=== PATIENT | male | born 1995 | race African-American/Black ===

== ENCOUNTER → 2019-11-13 16:56 | Outpatient (CLI) | payer BC, SELFPAY ==
--- NOTE | 2019-11-13 17:02 | RAD_ITS ---
STUDY: X-RAY CHEST REASON FOR EXAM: Male, 24 years old. Sob, atypical chest pain yesterday TECHNIQUE: PA and lateral views of the chest. COMPARISON: None. FINDINGS: The lungs are clear and expanded. Scattered calcified granulomas. There is no demonstrated pleural abnormality. Normal size heart. Normal mediastinum and shayy. Normal visualized pulmonary arteries. Normal visualized aortic arch and descending thoracic aorta. Normal visualized thoracic spine. Normal visualized ribs, clavicles, and shoulders. There is no demonstrated abnormality of the visualized soft tissue structures of the upper abdomen. RAD/Chest PA and Lateral IMPRESSION: Normal x-ray examination of the chest. Scattered calcified granulomas. Electronically Signed: Crow Allan, at 8:19 EST , Service support ,
[2019-11-13 18:03] LABS: Absolute Lymphocyte Count 1.22 X10^3/uL (0.83-4.51); Absolute Neutrophil Count 8.3 X10^3/uL (2.0-7.7); Basophil# 0.05 X10^3/uL; Basophil% 0.5 % (0-1); Eosinophil# 0.03 X10^3/uL; Eosinophils% 0.3 % (0-5); Hematocrit 50.6 % (40-54); Hemoglobin 16.8 g/dL (13.0-16.5); Lymphocyte # 1.22 X10^3/ul (4.0); Lymphocyte % 12.1 % (19-41); Mean Corp Hgb Conc 33.2 g/dL (32-36); Mean Corpuscular Volume 90.4 fL (80-94); Mean Platelet Vol. 9.2 fl (6.2-12.0); Monocyte# 0.49 X10^3/uL; Monocyte% 4.8 % (0-10); NRBC Flagged by Analyzer 0 % (0-5); Neutrophil # 8.28 X10^3/uL (2.7-7.7); Neutrophil % 81.9 % (47-70); Platelet Count 307 K/mm3 (150-450); RBC Distribution Width SD 43.6 fl (35.1-43.9); White Blood Count 10.1 K/mm3 (4.4-11.0)
[2019-11-13 18:34] LABS: ALB/GLOB Ratio 1.1 RATIO (0.9-2.4); AST(SGOT) 18 U/L (15-37); Alanine Aminotransfer ALT/SGPT 42 U/L (16-61); Albumin, Serum 4.5 g/dL (3.2-5.0); Alkaline Phosphatase 55 U/L (45-117); Anion Gap 6 (5-15); BUN 10 mg/dL (7-18); BUN/Creat Ratio 9.3 RATIO (10-20); Calcium,Total 9.9 mg/dL (8.5-10.1); Chloride 104 mmol/L (98-107); Creatinine, Serum 1.08 mg/dL (0.70-1.30); EST Glomerular Filtration Rate 87 mL/min (>60); Est Glom Filt Rate - Afr Amer 106 mL/min (>60); Glucose 83 mg/dL (74-106); Potassium 3.4 mmol/L (3.5-5.1); Protein, Total 8.5 g/dL (6.4-8.2); Sodium Level 139 mmol/L (136-145); Thyroid Stim Hormone (TSH) 0.84 uIU/mL (0.358-3.74)
[2019-11-16 20:07] LABS: Influenza A 1:16 (Neg:<1:8)
[2019-11-17 09:12] LABS: Influenza B Negative (Neg:<1:8)
== END ==
PROVIDERS: PCP Family Medicine; Referring Provider Family Medicine; Visit Provider Family Medicine
DX: R07.89 Other chest pain (principal); R68.83 Chills (without fever)
CPT/HCPCS: 36415; 71046; 80053; 84443; 85025; 86710

== ENCOUNTER → 2024-07-17 | Outpatient (CLI) | payer OTHER, SELFPAY ==
--- NOTE | 2024-07-17 16:49 | RAD_ITS ---
STUDY: X-RAY - ABDOMEN/PELVIS REASON FOR EXAM: Male, 29 years old. RLQ pain TECHNIQUE: AP supine and upright views of the abdomen and pelvis. COMPARISON: None. FINDINGS: Normal visualized lung bases. There is an unremarkable bowel gas pattern. There is no demonstrated free abdominal air. The visualized liver, spleen and kidneys are grossly normal in size and morphology. Normal soft tissue structures. Normal visualized osseous structures. RAD/Abd Inc Decub and/or Erect IMPRESSION: Normal x-ray examination of the abdomen and pelvis. Electronically Signed: Errol Hernandez MD at 12:27 EDT ,
[2024-07-17 18:14] LABS: Absolute Lymphocyte Count 1.93 X10^3/uL (0.83-4.51); Absolute Neutrophil Count 2.6 X10^3/uL (2.0-7.7); Basophil# 0.08 X10^3/uL; Basophil% 1.5 % (0-1); Eosinophil# 0.36 X10^3/uL; Eosinophils% 6.7 % (0-5); Hematocrit 45.3 % (40-54); Hemoglobin 14.8 g/dL (13.0-16.5); Lymphocyte # 1.93 X10^3/ul (0.83-4.51); Lymphocyte % 35.9 % (19-41); Mean Corp Hgb Conc 32.7 g/dL (32-36); Mean Corpuscular Volume 88.8 fL (80-94); Mean Platelet Vol. 9.5 fl (6.2-12.0); Monocyte# 0.41 X10^3/uL; Monocyte% 7.6 % (0-10); NRBC Flagged by Analyzer 0 % (0-5); Neutrophil # 2.58 X10^3/uL (2.7-7.7); Neutrophil % 48.1 % (47-70); Platelet Count 292 K/mm3 (150-450); RBC Distribution Width CV 12.9 % (11.6-14.6); RBC Distribution Width SD 41.7 fl (35.1-43.9); White Blood Count 5.4 K/mm3 (4.4-11.0)
[2024-07-17 18:18] LABS: Erythrocyte Sedimentation Rate 9 mm/hr (0-20)
[2024-07-17 18:27] LABS: ALB/GLOB Ratio 1.3 RATIO (0.9-2.4); AST(SGOT) 23 U/L (15-37); Alanine Aminotransfer ALT/SGPT 45 U/L (16-61); Albumin, Serum 4.3 g/dL (3.2-5.0); Alkaline Phosphatase 60 U/L (45-117); Amylase 87 U/L (25-115); Anion Gap 3 (5-15); BUN 15 mg/dL (7-18); BUN/Creat Ratio 14.9 RATIO (10-20); Calcium,Total 9.4 mg/dL (8.5-10.1); Chloride 105 mmol/L (98-107); Creatinine, Serum 1.01 mg/dL (0.70-1.30); EST Glomerular Filtration Rate 91 mL/min (>60); Est Glom Filt Rate - Afr Amer 111 mL/min (>60); Globulin 3.3 g/dL (2.2-4.2); Glucose 91 mg/dL (74-106); Lipase 51 U/L (13-75); Potassium 3.7 mmol/L (3.5-5.1); Protein, Total 7.6 g/dL (6.4-8.2); Sodium Level 137 mmol/L (136-145)
[2024-07-17 18:42] LABS: Color, Urine Yellow (Yellow); Glucose, Dipstick Normal (Normal); Ketone-Dipstick Negative (Negative); Leukocyte Esterase-Dipstick Negative /ul (Negative); Nitrite-Dipstick Negative (Negative); Occult Blood-Urine Negative /ul (Negative); Protein-Dipstick 15 mg/dl (Negative); Urine Bilirubin Dipstick Negative (Negative); Urine Clarity Clear (Clear); Urine Urobilinogen 1 mg/dl (Normal)
[2024-07-17 18:52] LABS: Bacteria RARE /hpf (None Seen); Red Blood Cells-Urine 0-5 SEEN /hpf (0-5); Squamous Epithelial Cells - UA 0-5 SEEN /hpf (0-5); White Blood Cells 0-5 SEEN /hpf (0-5)
[2024-07-17 18:54] LABS: Coarse Granular Cast 0-5 SEEN /lpf (0-5 /lpf); Mucous, Urine 1+ /hpf (<or=2+)
--- OUTSIDE RECORDS SUMMARY | 2024-07-17 19:47 | XMS RPT_ITS | CCD ---
Author Organization [facility] Care Team Providers Care Saw Edge Fuser Circular Name Role Phone Unavailable Primary Care Provider MARYJANE Prince Attending Unavailable Medications Completed/Discontinued Medications Medication Drug Class(es) Dates Sig (Normalized) Sig (Original) triamcinolone acetonide 0.005 mg/mg topical ointment (1 source) Corticosteroid Start: 06-22-2022 triamcinolone acetonide topical 0.5 % ointment Indications: Rash and nonspecific skin eruption Apply to affected area twice daily. Apply thin layer to affected area and rub in until medication is absorbed 15 g 0 06/22/2022 Active Comment on above: Apply to affected ar ea twice daily. Apply thin layer to affected area and rub in until medication is absorbed Problems Active Problems Problem Classification Problem Date Documented Da te Episodic/Chronic Other skin disorders (1 source) Eruption; Translations: [Rash and other nonspecific skin eruption] Episodic Past or Other Problems Problem Classification Problem Date Documented Da te Episodic/Chronic Nonspecific chest pain (1 source) Chest pain; Translations: [Chest pain, unspecified] Onset: 05-29-2014 Episodic Results Test Name Value Interpretation Reference Range [facility] 03-24-2023 ALLIED [facility]ALTH HNO ID: [id number] Author: RT Constantin(R) Service: Radiology Author Type: Compound Filler Type: Allied Health Filed: 03/24/2023 2:48 PM Note Text: Radiology Service Progress Note PATIENT NAME: Yohannes Ford DATE OF SERVICE: March 24, 2023 TIME: 2:48 PM PATIENT IDENTITY VERIFICATION COMPLETED USING TWO (2) IDENTIFIERS: Name and Date of confirmed by patient verbally. FALL SCREENING: Has the patient had 2 falls in the last year or 1 fall with injury or currently using an Ambulatory Assistive Device (Walker, Cane, Wheelchair, Crutches, etc.)? Emergency Room Patient: Screened in ED PATIENT GENDER DATA: Male PATIENT RELEVANT IMPLANT DATA REVIEWED: Not Applicable RADIOLOGY DEPARTMENT: General X-ray: Exam(s) Completed: Chest X-Ray PERIPHERAL IV DATA: Not applicable SIGNED BY: Kimberley Del Rio RT(R) March 24, 2023 2:48 PM [facility] CBC W Auto Differential pane l (Bld)on 03-24-2023 Basophils (Bld) [#/Vol] 0.05 10*3/uL Normal <0.11 [facility] Comment on above: Order Comment: Speci men Type: BLOOD SPECIMEN Ordering Facility: [facility] Address: [address] [place] [address] Performed By: #### 5 7021-8 #### [facility] CLIA [id number] [address] Basophils/100 WBC (Bld) 0.7 % Normal [facility] Comment on above: Order Comment: Speci men Type: BLOOD SPECIMEN Ordering Facility: [facility] Address: [address] [place] [address] Performed By: #### 5 7021-8 #### [facility] CLIA [id number] [address] Differential cell count method Nom (Bld) Auto Normal [facility] Comment on above: Order Comment: Speci men Type: BLOOD SPECIMEN Ordering Facility: [facility] Address: [address] [place] [address] Performed By: #### 5 7021-8 #### [facility] CLIA [id number] [address] Eosinophils (Bld) [#/Vol] 0.30 10*3/uL Normal <0.46 [facility] Comment on above: Order Comment: Speci men Type: BLOOD SPECIMEN Ordering Facility: [facility] Address: [address] [place] [address] Performed By: #### 5 7021-8 #### [facility] CLIA [id number] [address] [place] [address] [place] Eosinophils/100 WBC (Bld) 4.0 % Normal [facility] Comment on above: Order Comment: Speci men Type: BLOOD SPECIMEN Ordering Facility: [facility] Address: [address] [place] [address] Performed By: #### 5 7021-8 #### [facility] CLIA [id number] [address] [place] [address] [place] Erythrocyte distribution width (RBC) [Ratio] 12.6 % Normal 11.5-15.0 [facility] Comment on above: Order Comment: Speci men Type: BLOOD SPECIMEN Ordering Facility: [facility] Address: [address] [address] Performed By: #### 5 7021-8 #### [facility] CLIA [id number] [address] [place] Hematocrit (Bld) [Volume fraction] 44.7 % Normal 39.0-51.0 [facility] Comment on above: Order Comment: Speci men Type: BLOOD SPECIMEN Ordering Facility: [facility] Address: [address] [address] Performed By: #### 5 7021-8 #### [facility] CLIA [id number] [address] [place] [address] [place] Hemoglobin (Bld) [Mass/Vol] 15.5 g/dL Normal 13.0-17.0 [facility] Comment on above: Order Comment: Speci men Type: BLOOD SPECIMEN Ordering Facility: [facility] Address: [address] [address] Performed By: #### 5 7021-8 #### [facility] CLIA [id number] [address] [place] [address] [place] Immature granulocytes (Bld) [#/Vol] 10*3/uL Normal <0.10 [facility] Comment on above: Order Comment: Speci men Type: BLOOD SPECIMEN Ordering Facility: [facility] Address: [address] [address] Performed By: #### 5 7021-8 #### [facility] CLIA [id number] [address] [place] Immature granulocytes/100 WBC (Bld) 0.3 % Normal [facility] Comment on above: Order Comment: Speci men Type: BLOOD SPECIMEN Ordering Facility: [facility] Address: [address] [place] [address] Performed By: #### 5 7021-8 #### [facility] CLIA [id number] [address] Lymphocytes (Bld) [#/Vol] 1.23 10*3/uL Normal 1.00-4.00 [facility] Comment on above: Order Comment: Speci men Type: BLOOD SPECIMEN Ordering Facility: [facility] Address: [address] [place] [address] Performed By: #### 5 7021-8 #### [facility] CLIA [id number] [address] Lymphocytes/100 WBC (Bld) 16.2 % Normal [facility] Comment on above: Order Comment: Speci men Type: BLOOD SPECIMEN Ordering Facility: [facility] Address: [address] [place] [address] Performed By: #### 5 7021-8 #### [facility] CLIA [id number] [address] MCH (RBC) [Entitic mass] 30.6 pg Normal 26.0-34.0 [facility] Comment on above: Order Comment: Speci men Type: BLOOD SPECIMEN Ordering Facility: [facility] Address: [address] [place] [address] Performed By: #### 5 7021-8 #### [facility] CLIA [id number] [address] MCHC (RBC) [Mass/Vol] 34.7 g/dL Normal 30.5-36.0 [facility] Comment on above: Order Comment: Speci men Type: BLOOD SPECIMEN Ordering Facility: [facility] Address: [address] [place] [address] Performed By: #### 5 7021-8 #### [facility] CLIA [id number] [address] MCV (RBC) [Entitic vol] 88.2 fL Normal 80.0-100.0 [facility] Comment on above: Order Comment: Speci men Type: BLOOD SPECIMEN Ordering Facility: [facility] Address: [address] [address] Performed By: #### 5 7021-8 #### [facility] CLIA [id number] [address] [place] Monocytes (Bld) [#/Vol] 0.46 10*3/uL Normal <0.87 [facility] Comment on above: Order Comment: Speci men Type: BLOOD SPECIMEN Ordering Facility: [facility] Address: [address] [address] Performed By: #### 5 7021-8 #### [facility] CLIA [id number] [address] Monocytes/100 WBC (Bld) 6.1 % Normal [facility] Comment on above: Order Comment: Speci men Type: BLOOD SPECIMEN Ordering Facility: [facility] Address: [address] [address] Performed By: #### 5 7021-8 #### [facility] CLIA [id number] [address] [place] Neutrophils (Bld) [#/Vol] 5.53 10*3/uL Normal 1.45-7.50 [facility] Comment on above: Order Comment: Speci men Type: BLOOD SPECIMEN Ordering Facility: [facility] Address: [address] [address] Performed By: #### 5 7021-8 #### [facility] CLIA [id number] [address] [place] Neutrophils/100 WBC (Bld) 72.7 % Normal [facility] Comment on above: Order Comment: Speci men Type: BLOOD SPECIMEN Ordering Facility: [facility] Address: [address] [address] Performed By: #### 5 7021-8 #### [facility] CLIA [id number] [address] Nucleated RBC (Bld) [#/Vol] 10*3/uL Normal <0.01 [facility] Comment on above: Order Comment: Speci men Type: BLOOD SPECIMEN Ordering Facility: [facility] Address: [address] [address] Performed By: #### 5 7021-8 #### [facility] CLIA [id number] [address] [place] Nucleated RBC/100 WBC (Bld) [Ratio] 0.0 /100 WBC Normal [facility] Comment on above: Order Comment: Speci men Type: BLOOD SPECIMEN Ordering Facility: [facility] Address: [address] [address] Performed By: #### 5 7021-8 #### [facility] CLIA [id number] [address] [place] Platelet mean volume (Bld) [Entitic vol] 8.8 fL Low 9.0-12.7 [facility] Comment on above: Order Comment: Speci men Type: BLOOD SPECIMEN Ordering Facility: [facility] Address: [address] [address] Performed By: #### 5 7021-8 #### [facility] CLIA [id number] [address] [place] Platelets (Bld) [#/Vol] 271 10*3/uL Normal 150-400 [facility] Comment on above: Order Comment: Speci men Type: BLOOD SPECIMEN Ordering Facility: [facility] Address: [address] [address] Performed By: #### 5 7021-8 #### [facility] CLIA [id number] [address] [place] RBC (Bld) [#/Vol] 5.07 10*6/uL Normal 4.20-6.00 [facility] Comment on above: Order Comment: Speci men Type: BLOOD SPECIMEN Ordering Facility: [facility] Address: [address] [address] Performed By: #### 5 7021-8 #### [facility] CLIA [id number] [address] [place] [address] [facility] [place] WBC (Bld) [#/Vol] 7.59 10*3/uL Normal 3.70-11.00 [facility] Comment on above: Order Comment: Speci men Type: BLOOD SPECIMEN Ordering Facility: [facility] Address: [address] [place] [address] Performed By: #### 5 7021-8 #### [facility] CLIA [id number] [address] OF [facility] Comprehensive metabolic 2000 panelon 03-24-2023 Albumin [Mass/Vol] 4.5 g/dL Normal 3.9-4.9 [facility] Comment on above: Order Comment: Speci men Type: BLOOD SPECIMEN Ordering Facility: [facility] Address: [address] [place] [address] Performed By: #### L [id number], 61916-7 #### [facility] CLIA [id number] [address] ALP [Catalytic activity/Vol] 59 U/L Normal 38-113 [facility] Comment on above: Order Comment: Speci men Type: BLOOD SPECIMEN Ordering Facility: [facility] Address: [address] [place] [address] Performed By: #### L [id number], 57527-7 #### [facility] CLIA [id number] [address] ALT [Catalytic activity/Vol] 28 U/L Normal 10-54 [facility] Comment on above: Order Comment: Speci men Type: BLOOD SPECIMEN Ordering Facility: [facility] Address: [address] [place] [address] Performed By: #### L [id number], 56273-2 #### [facility] CLIA [id number] [address] Anion gap [Moles/Vol] 14 mmol/L Normal 9-18 [facility] Comment on above: Order Comment: Speci men Type: BLOOD SPECIMEN Ordering Facility: [facility] Address: [address] [place] [address] Performed By: #### L [id number], 51340-6 #### [facility] CLIA [id number] [address] [place] [address] [place] AST [Catalytic activity/Vol] 20 U/L Normal 14-40 [facility] Comment on above: Order Comment: Speci men Type: BLOOD SPECIMEN Ordering Facility: [facility] Address: [address] [place] [address] Performed By: #### L [id number], 38162-8 #### [facility] CLIA [id number] [address] [place] [address] [place] Bilirubin [Mass/Vol] 0.6 mg/dL Normal 0.2-1.3 [facility] Comment on above: Order Comment: Speci men Type: BLOOD SPECIMEN Ordering Facility: [facility] Address: [address] [place] [address] Performed By: #### L [id number], #### [facility] CLIA [id number] [address] [place] [address] [place] Calcium [Mass/Vol] 9.4 mg/dL Normal 8.5-10.2 [facility] Comment on above: Order Comment: Speci men Type: BLOOD SPECIMEN Ordering Facility: [facility] Address: [address] [place] [address] Performed By: #### L [id number], #### [facility] CLIA [id number] [address] [place] [address] [place] Chloride [Moles/Vol] 101 mmol/L Normal 97-105 [facility] Comment on above: Order Comment: Speci men Type: BLOOD SPECIMEN Ordering Facility: [facility] Address: [address] [address] Performed By: #### L [id number], 53960-0 #### [facility] CLIA [id number] [address] [place] [address] [place] CO2 [Moles/Vol] 23 mmol/L Normal 22-30 [facility] Comment on above: Order Comment: Speci men Type: BLOOD SPECIMEN Ordering Facility: [facility] Address: [address] [address] Performed By: #### L [id number], 40092-4 #### [facility] CLIA [id number] [address] Creatinine [Mass/Vol] 1.07 mg/dL Normal 0.73-1.22 [facility] Comment on above: Order Comment: Vanessa cruz Type: BLOOD SPECIMEN Ordering Facility: [facility] Address: [address] [address] Performed By: #### L [id number], 08804-5 #### [facility] CLIA [id number] [address] ESTIMATED GLOMERULAR FILTRATION RATE 96 mL/min/1.73m??? Normal >=60 [facility] Comment on above: Order Comment: Vanessa cruz Type: BLOOD SPECIMEN Ordering Facility: [facility] Address: [address] [place] [address] Result Comment: Estelita mated Glomerular Filtration Rate (eGFR) is calculated using the 2020 CKD-EPI creatinine equation. This equation utilizes serum creatinine, sex, and age as parameters. The creatinine assay has traceable calibration to isotope dilution-mass spectrometry. Refer to KDIGO guidelines for clinical interpretation. In patients with unstable renal function, e.g. those with acute kidney injury, the eGFR may not accurately reflect actual GFR. Performed By: #### L ES9529, 96906-8 #### [facility] CLIA [id number] [address] [place] Glucose [Mass/Vol] 119 mg/dL High 74-99 [facility] Comment on above: Order Comment: Vanessa cruz Type: BLOOD SPECIMEN Ordering Facility: [facility] Address: [address] [address] Result Comment: The [place] Diabetes Association (ADA) provides guidance for cutoff values for fasting glucose and random glucose. The ADA defines fasting as no caloric intake for at least 8 hours. Fasting plasma glucose results between 100 to 125 mg/dL indicate increased risk for diabetes (prediabetes). Fasting plasma glucose results greater than or equal to 126 mg/dL meet the criteria for diagnosis of diabetes. In the absence of unequivocal hyperglycemia, results should be confirmed by repeat testing. In a patient with classic symptoms of hyperglycemia or hyperglycemic crisis, random plasma glucose results greater than or equal to 200 mg/dL meet the criteria for diagnosis of diabetes. Reference: Standards of Medical Care in Diabetes 2016, [place] [employer] Association. Diabetes Care. 2016.39(Suppl 1). Performed By: #### L [id number], 43370-7 #### [facility] CLIA [id number] [address] [place] [address] [place] Potassium [Moles/Vol] 3.7 mmol/L Normal 3.7-5.1 [facility] Comment on above: Order Comment: Vanessa men Type: BLOOD SPECIMEN Ordering Facility: [facility] Address: [address] [place] [address] Performed By: #### L [id number], 99402-8 #### [facility] CLIA [id number] [address] [place] Protein [Mass/Vol] 7.4 g/dL Normal 6.3-8.0 [facility] Comment on above: Order Comment: Vanessa men Type: BLOOD SPECIMEN Ordering Facility: [facility] Address: [address] [address] Performed By: #### L [id number], 83170-5 #### [facility] CLIA [id number] [address] [place] Sodium [Moles/Vol] 138 mmol/L Normal 136-144 [facility] Comment on above: Order Comment: Neymari men Type: BLOOD SPECIMEN Ordering Facility: [facility] Address: [address] [address] Performed By: #### L [id number], 63101-6 #### [facility] CLIA [id number] [address] [place] Urea nitrogen [Mass/Vol] 15 mg/dL Normal 9-24 [facility] Comment on above: Order Comment: Vanessa men Type: BLOOD SPECIMEN Ordering Facility: [facility] Address: [address] [address] Performed By: #### L [id number], 52363-4 #### [facility] CLIA [id number] [address] [place] [address] [place] D dimer FEU PPP-mCncon 03-24 Fibrin D-dimer FEU (PPP) [Mass/Vol] 260 ng/mL FEU Normal <500 [facility] Comment on above: Order Comment: Speci men Type: BLOOD SPECIMEN Ordering Facility: [facility] Address: [address] [place] [address] Performed By: #### 4 8065-7, 35620-3 #### [facility] CLIA [id number] [address] [place] [address] [place] ECG COMPLETEon 03-24-2023 ECG COMPLETE Ventricular Rate : 8 9 BPM Atrial Rate : 89 BPM P-R Interval : 154 ms QRS Duration : 96 ms Q-T Interval : 356 ms QTC Calculation(Bazett) : 433 ms Calculated P Union : 70 degrees Calculated R Union : 71 degrees Calculated T Union : 40 degrees NORMAL SINUS RHYTHM NORMAL ECG no stemi Confirmed by MD GONZALEZ STEVEN ([id number]), editorial clerk ADILSON ORTIZ ([id number]) on 03/24/2023 4:23:22 PM NAME : YOHANNES FORD PID : [id number] : 1995 Gender : Male Race : ORD : [id number] Procedure Date : Mar 24 2023 13:34:57 Edit Date : Mar 24 2023 16:23:23 Diagnosis: NORMAL SINUS RHYTHM NORMAL ECG no stemi Confirmed by MD GONZALEZ STEVEN ([id number]), editorial clerk ADILSON ORTIZ ([id number]) on 03/24/2023 4:23:22 PM Test Reason : Chest Pain Location : 1 : ER 16 Overread By : MD GONZALEZ STEVEN Edited By : ADILSON ORTIZ Referred By : , Acquired by : Marianne OROZCO [facility] ED NOTEon 03-24-2023 ED NOTE HNO ID: [id number] Author: Joshua Traylor RN Service: ? Author Type: Registered Nurse Type: ED Notes Filed: 03/24/2023 4:38 PM Note Text: Discharge instructions and prescriptions reviewed with patient via teachback. Pt verbalizes understanding. Pt awake and alert, respirations regular and unlabored. No further questions for this RN. Normal [facility] ED NOTE HNO ID: [id number] Author: GREYSON Muñoz Service: ? Author Type: Nurse Associate Type: ED Notes Filed: 03/24/2023 1:36 PM Note Text: Pt c/o chest pain x 1 week. He says he mostly feels the pain in his lower right chest, and says it is worse with breathing deep. Pt says the pain is 2/10 but feels sharp. Normal [facility] ED PROV NOTEon 03-24-2023 ED PROV NOTE HNO ID: [id number] Author: Surinder [place] MD Service: Emergency Medicine Author Type: Physician Type: ED Provider Notes Filed: 03/24/2023 4:16 PM Note Text: ED CONTINUATION OF CARE NOTE Code Status: Full Code Assumed care from: Dr. Douglass Presentation / Findings / Interventions / Plan / Items to Follow Up: Labs, chest x-ray XR CHEST 1V FRONTAL PORT Final Result IMPRESSION: No acute napper grinder: NAYELY Transcribe Date/Time: Mar 24 2023 3:03P Dictated by : STACY JOHNSON DO This examination was interpreted and the report reviewed and electronically signed by: STACY JOHNSON DO on Mar 24 2023 3:04PM EST Medications NaCl 0.9% iv flush bag (has no administration in time range) NaCl 0.9% iv infusion (125 mL/hr INTRAVENOUS New Bag/Syringe/Bottle 03/24/23 1400) ED Course as of 03/24/23 1612 Surinder Davis's Documentation MonMar 24, 2023 1604 High-sensitivity troponins are negative x2, D-dimer normal INR 1.1 CMP normal except for glucose of 119 CBC with differential is normal Others' Documentation MonMar 24, 2023 1402 EKG is normal sinus rhythm rate of 89 normal axis no acute ST segment changes consistent with injury or ischemia [SL] ED Course User Index [SL] Eugene Gonzalez MD Clinical Impressions as of 03/24/23 1612 Chest pain, unspecified type Shortness of breath Medical Decision Making Admission was considered if the patient had a pneumothorax a pulmonary embolism or evidence of ACS and Tests considered, but not performed CT PE study however D-dimer was negative therefore it was not necessary He will be discharged home with a prescription for naproxen follow-up with primary care physician within the next week I did ask our appointment schedulers to help make this appointment for him SIGNATURE: Surinder Davis MD PATIENT NAME: Yohannes Ford DATE: March 24, 2023 TIME: 4:12 PM PAGER/CONTACT #: SURINDER DAVIS 03/24/23 1616 [facility] ED PROV NOTE HNO ID: [id number] Author: Eugene Gonzalez MD Service: Emergency Medicine Author Type: Physician Type: ED Provider Notes Filed: 03/24/2023 2:39 PM Note Text: ED Provider Note Patient Name: Yohannes Ford : 1995 SERVICE DATE: 03/24/23 History Patient presents with: Chest Pain: Right lower chest Is a 27-year-old male who comes into the emergency department with complaints of right-sided chest pain he states is pleuritic. It is on the inferior aspect of his chest. Hurts with deep breathing he has no cough congestion fever chills no recent illnesses and is here for further evaluation. He denies this type of incident in the past he states that he does not smoke or vape. PAST MEDICAL HISTORY Diagnosis Date - Anxiety - Blood in stool PAST SURGICAL HISTORY Procedure Laterality Date - COLONOSCOPY 09/07 No family history on file. Social History Tobacco Use - Smoking status: Never - Smokeless tobacco: Not on file Vaping Use - Vaping Use: Never used Substance and Sexual Activity - Alcohol use: Yes Comment: occasionally - Drug use: Not Currently - Sexual activity: Not on file ALLERGIES No Known Allergies Review of Systems Constitutional: Negative for fever. HENT: Negative for trouble swallowing. Eyes: Negative for visual disturbance. Respiratory: Negative for shortness of breath. Cardiovascular: Positive for chest pain. Negative for palpitations and leg swelling. Gastrointestinal: Negative for abdominal pain. Genitourinary: Negative for frequency. Musculoskeletal: Negative for arthralgias. Skin: Negative for rash. Neurological: Negative for seizures. Hematological: Negative for adenopathy. Psychiatric/Behavioral: Negative for suicidal ideas. All other systems reviewed and are negative. Physical Exam Vitals [03/24/23 1333] BP Pulse Temp Temp src Resp SpO2 Weight Height 132/80 (!) 95 36.6 ?C (97.9 ?F) Oral 18 96 % 88.2 kg (194 lb 7.1 oz) -- Physical Exam Vitals and nursing note reviewed. Constitutional: Appearance: Normal appearance. HENT: Head: Normocephalic and atraumatic. Right Ear: Tympanic membrane, ear canal and external ear normal. Left Ear: Tympanic membrane, ear canal and external ear normal. Nose: Nose normal. Mouth/Throat: Mouth: Mucous membranes are moist. Eyes: Extraocular Movements: Extraocular movements intact. Conjunctiva/sclera: Conjunctivae normal. Pupils: Pupils are equal, round, and reactive to light. Cardiovascular: Rate and Rhythm: Normal rate and regular rhythm. Pulses: Normal pulses. Heart sounds: Normal heart sounds. No murmur heard. No friction rub. No gallop. Pulmonary: Effort: Pulmonary effort is normal. No tachypnea, accessory muscle usage or respiratory distress. Breath sounds: Normal breath sounds. Stridor present. No wheezing, rhonchi or rales. Chest: Chest wall: No mass or deformity. Abdominal: General: Bowel sounds are normal. There is no distension. Palpations: Abdomen is soft. There is no mass. Tenderness: There is no abdominal tenderness. There is no right CVA tenderness, left CVA tenderness, guarding or rebound. Hernia: No hernia is present. Musculoskeletal: General: No tenderness, deformity or signs of injury. Cervical back: Normal range of motion and neck supple. No rigidity. Right lower leg: No edema. Left lower leg: No edema. Lymphadenopathy: Cervical: No cervical adenopathy. Skin: General: Skin is warm and dry. Capillary Refill: Capillary refill takes less than 2 seconds. Coloration: Skin is not jaundiced. Findings: No erythema, petechiae or rash. Neurological: General: No focal deficit present. Mental Status: He is alert and oriented to person, place, and time. Mental status is at baseline. Cranial Nerves: No cranial nerve deficit. Sensory: No sensory deficit. Motor: No weakness. Deep Tendon Reflexes: Reflexes normal. Psychiatric: Mood and Affect: Mood normal. Thought Content: Thought content does not include homicidal or suicidal ideation. Diagnostic Testing ED Labs Ordered and Reviewed - No data to display Procedures ED Course / Clinical Impression ED Course as of 03/24/23 1439 Eugene Gonzalez's Documentation MonMar 24, 2023 1402 EKG is normal sinus rhythm rate of 89 normal axis no acute ST segment changes consistent with injury or ischemia Clinical Impressions as of 03/24/23 1439 Chest pain, unspecified type Shortness of breath MDM / Disposition / Plan MDM SIGNATURE: MD KEVEN Munguia STEVEN 03/24/23 1439 Normal [facility] HIGH SENSITIVITY TROPONIN T (INITIAL)on 03-24-2023 HIGH SENSITIVITY ANNETTA <6 Normal <12 [facility] Comment on above: Order Comment: Vanessa cruz Type: BLOOD SPECIMEN Ordering Facility: [facility] Address: [address] [place] [address] Result Comment: When assessing risk for acute coronary syndromes: In patients undergoing blood draw greater than or equal to 2 hours from symptom onset, with history of very low to moderate risk and non-ischemic ECG, an initial hs-Troponin T less than 12 ng/L AND a 1 hour delta hs-Troponin T less than 3 ng/L should be considered very low risk for 30 day MACE. Performed By: #### L [id number], 33840-2 #### [facility] CLIA [id number] [address] [place] [address] [place] HIGH SENSITIVITY TROPONIN T (SECOND)on 03-24-2023 HIGH SENSITIVITY ANNETTA <6 Normal <[address] [place] [address] Comment on above: Order Comment: Vanessa cruz Type: BLOOD SPECIMEN Ordering Facility: [facility] Address: [address] [place] [address] Result Comment: When assessing risk for acute coronary syndromes: In patients undergoing blood draw greater than or equal to 2 hours from symptom onset, with history of very low to moderate risk and non-ischemic ECG, an initial hs-Troponin T less than 12 ng/L AND a 1 hour delta hs-Troponin T less than 3 ng/L should be considered very low risk for 30 day MACE. Performed By: #### L [id number] #### [facility] CLIA [id number] [address] [place] [address] [place] PT panel Coag (PPP)on 2022 INR Coag (PPP) [Relative time] 1.1 {INR} Normal 0.9-1.3 [facility] Comment on above: Order Comment: Vanessa cruz Type: BLOOD SPECIMEN Ordering Facility: [facility] Address: [address] [place] [id number] Result Comment: Marychuy min K Antagonist (VKA) Therapeutic Range: INR 2 to 3 (Target INR of 2.5) Note: For patients treated with VKA drugs, such as warfarin, the [employer] 2012 Guideline recommends a therapeutic INR range of 2 to 3 (target INR of 2.5). This recommendation includes high-risk patients with antiphospholipid syndrome with previous arterial or venous thromboembolism, current-generation mechanical or bioprosthetic aortic heart valve replacement. Note: Patients with mechanical aortic valve replacement and additional risk factors for thromboembolic events (atrial fibrillation, previous thromboembolism, LV dysfunction, hypercoagulable conditions) or an older generation mechanical AVR (i.e., ball in-Cage) or any mechanical MVR should have a INR therapeutic range of 2.5 to 3.5 (target INR of 3). Ulises GH, et al. Chest 2012, 141:7S-47S Nelson RA, et al. [facility] 2017, 70: 252-289 Performed By: #### 4 [id number], 88757-1 #### [facility] CLIA [id number] [address] [place] [address] [place] PT Coag (PPP) [Time] 11.7 s Normal 9.7-13.0 [facility] Comment on above: Order Comment: Speci men Type: BLOOD SPECIMEN Ordering Facility: [facility] Address: [address] [place] [id number] Performed By: #### 4 [id number], 77356-2 #### [facility] CLIA [id number] [address] [place] XR CHEST 1V FRONTAL PORTon 0 03-24-2023 XR CHEST 1V FRONTAL PORT * * *Final Report* * * DATE OF EXAM: Mar 24 2023 2:48PM MDX [id number] - XR CHEST 1V FRONTAL PORT / PROCEDURE REASON: Chest pain, nonspecific * * * * Physician Interpretation * * * * EXAMINATION: CHEST RADIOGRAPH (PORTABLE SINGLE VIEW AP) Exam Date/Time: 03/24/2023 2:48 PM CLINICAL HISTORY: Chest pain, nonspecific MQ: XCPR_5 Comparison: 05/29/2014 RESULT: 1. Lines, Tubes, and Devices: None 2. Lungs and Pleura: The lungs are clear. No infiltrates, nodules or pleural effusions are seen. 3. Cardiomediastinal silhouette: Heart size within normal limits. Pulmonary vascularity is unremarkable. 4. Other: Bony structures unremarkable. IMPRESSION: No acute napper grinder: NAYELY Transcribe Date/Time: Mar 24 2023 3:03P Dictated by : STACY JOHNSON DO This examination was interpreted and the report reviewed and electronically signed by: STACY JOHNSON DO on Mar 24 2023 3:04PM EST [id number] Normal [facility] Encounters Encounter Date Encounter Type Care Provider Facility Start: 03-24-2023 Emergency department patient visit Facility:[facility] Start: 06-22-2022 End: 06-22-2022 ambulatory MARYJANE CHILDERS Facility:[facility] Start: 06-22-2022 End: 06-22-2022 ambulatory Maryjane Childers [employer].CRISTIAN Work Phone: Telemedicine Comment on above: Rash and nonspecific skin eruption (Primary Dx) Start: 06-22-2022 End: 06-22-2022 Telemedicine consultation with patient Maryjane Massey Liseth CLOTH REELER.CRISTIAN Work Phone: [facility] Plan of Treatment Date Care Activity Detail Author Start: 05-26-2022 Influenza vaccination INFLUENZA (#1) [facility] Start: 09-25-2021 DEPRESSION ASSESSMENT DEPRESSION ASS ESSMENT [facility] Start: 2012 Urine microalbumin profile DTAP,TDAP ,TD (1 - Tdap) [facility] Start: 2011 HEPATITIS C SCREENING HEPATITIS C SC REEEARL [facility] Start: 2011 HIV SCREENING HIV SCREENING [facility] Start: 1993 COVID-19 VACCINE (#1) COVID-19 VACCI NE (#1) [facility] Start: 1993 HEPATITIS B (1 of 3 - 3-dose series) HEPATITIS B (1 of 3 - 3-dose series) [facility] Payers Date Payer Category Payer Unknown [id number] 2018 Unknown [employer] PPO [id number] 2018-Present [phone] [address] [place] [address] PPO [id number] Social History Date Type Detail Facility Start: 05-29-2014 Tobacco smoking stat us DEIS Never smoked tobacco [facility] Start: 06-22-2022 Alcohol intake Current non-dr licensed optical dispenser of alcohol (finding) [facility] Start: 1993 Sex Assigned At Not on file [facility] Progress note 06-22-2022 Note Date & Type Note Facility 06-22-2022 Note HNO ID: [id number] Author: Maryjane Childers APRN.STAFF RESEARCH ASSOCIATE Service: ? Author Type: Nurse Practitioner Type: Progress Notes Filed: 06/22/2022 8:02 PM Note Text: Telemedicine Visit - Distance Health Virtual Visit Note Patient seen on [employer] [facility] Online platform. Location of patient: [place] No primary care provider on file. History of Present Illness Yohannes Ford is a 27 year old male who reports about a one week Hx of a rash that happened suddenly. Reports some tenderness but mostly itching. Describes as clusters of red bumps scattered to his arms, legs and torso. Denies new exposures or similar rash in the past. Otherwise feels in his normal state of health. Has not tried anything other than ice. He is concerned his leg rash could represent infection. Denies fever or chills. PAST MEDICAL HISTORY Diagnosis Date Anxiety Blood in stool PAST SURGICAL HISTORY Procedure Laterality Date COLONOSCOPY 09/07 No family history on file. Social History Tobacco Use Smoking status: Never Substance Use Topics Alcohol use: No No current outpatient medications on file. No current facility-administered medications for this visit. ALLERGIES No Known Allergies Video Exam (Examination performed via Video enabled technology) General appearance: Alert, oriented, pleasant, in NAD :Yes Ill appearing :No Lethargic appearing :No Respiratory distress :No Skin: Scattered mildly erythematous papules with some in a linear pattern to his right arm, more confluent collection of erythema with papules within ASSESSMENT/PLAN: 1. Rash and nonspecific skin eruption - ICD9: 782.1, ICD10: R21 - TRIAMCINOLONE ACETONIDE 0.5 % TOPICAL OINTMENT Though patient denies any exposure to plant material, appears very consistent with poison mariano. Possible it is some other type of contact/allergic dermatitis. Will utilize topical steroid as rash has likely been present for about 10 days. Will also send [employer] message to continue to monitor situation. PLAN: - Red flags discussed for need for in person care - All questions answered Maryjane Childers APRN.CRISTIAN If you let us know who your primary care provider is, we will send them a notification of today's visit through our electronic medical records system. Since not all providers have access to our notifications, we strongly encourage you to share the following record of today's visit with your primary care provider at your next visit. This will help in providing you the best care. If you do not have an established Primary Care physician and would like to continue care with a [facility] Virtual Primary Care physician, please ask your provider to place a Establish Primary Care order. Use [employer] to manage your care, wherever you are, 17/04, on your mobile device or computer. [employer] connects you to [employer] so you can access all your health information in one place and also schedule and request virtual appointments with primary care providers. [facility] History of Present illness Narrative 06-22-2022 Maryjane Childers APRN.CRISTIAN - 06/22/2022 7:41 PM EDT Note Date & Type Note Facility 06-22-2022 History of Presen t illness Narrative Telemedicine Visit - Distance Health Virtual Visit Note Patient seen on [employer] Online platform. Location of patient: [place] No primary care provider on file. History of Present Illness Yohannes Ford is a 27 year old male who reports about a one week Hx of a rash that happened suddenly. Reports some tenderness but mostly itching. Describes as clusters of red bumps scattered to his arms, legs and torso. Denies new exposures or similar rash in the past. Otherwise feels in his normal state of health. Has not tried anything other than ice. He is concerned his leg rash could represent infection. Denies fever or chills. PAST MEDICAL HISTORY Diagnosis Date Anxiety Blood in stool PAST SURGICAL HISTORY Procedure Laterality Date COLONOSCOPY 09/07 No family history on file. Social History Tobacco Use Smoking status: Never Substance Use Topics Alcohol use: No No current outpatient medications on file. No current facility-administered medications for this visit. ALLERGIES No Known Allergies Video Exam (Examination performed via Video enabled technology) General appearance: Alert, oriented, pleasant, in NAD :Yes Ill appearing :No Lethargic appearing :No Respiratory distress :No Skin: Scattered mildly erythematous papules with some in a linear pattern to his right arm, more confluent collection of erythema with papules within ASSESSMENT/PLAN: 1. Rash and nonspecific skin eruption - ICD9: 782.1, ICD10: R21 - TRIAMCINOLONE ACETONIDE 0.5 % TOPICAL OINTMENT Though patient denies any exposure to plant material, appears very consistent with poison mariano. Possible it is some other type of contact/allergic dermatitis. Will utilize topical steroid as rash has likely been present for about 10 days. Will also send [employer] message to continue to monitor situation. PLAN: - Red flags discussed for need for in person care - All questions answered Maryjane Childers APRN.CNP If you let us know who your primary care provider is, we will send them a notification of today's visit through our electronic medical records system. Since not all providers have access to our notifications, we strongly encourage you to share the following record of today's visit with your primary care provider at your next visit. This will help in providing you the best care. If you do not have an established Primary Care physician and would like to continue care with a [facility] Virtual Primary Care physician, please ask your provider to place a Establish Primary Care order. Use [employer] to manage your care, wherever you are, 17/04, on your mobile device or computer. [employer] connects you to [employer] so you can access all your health information in one place and also schedule and request virtual appointments with primary care providers. documented in this encounter [facility] Evaluation note Note Date & Type Note Facility Evaluation note Diagnosis Rash and nonspecific skin eruption- Primary Rash and other nonspecific skin eruption documented in this encounter [facility] Summary Purpose Family History No Family History Records FoundNo Family History Records Found Advance Directives No Advanced Directives Records FoundNo Advanced Directives Records Found Additional Source Comments Source Comments (unrecognize d section and content) In the event this informatio n is protected by the Federal Confidentiality of Alcohol and Drug Abuse Patient Records regulations: The Federal rules restrict any use of the information to criminally investigate or prosecute any alcohol or drug abuse patient.[facility] Reason for Visit (unrecogniz ed section and content) Reason Comments Rash (unrecognized sect ion and content) No Status Records FoundNo Status Records Found INFORMATION SOURCE (unrecogn ized section and content) DATE CREATED AUTHOR 06/27/2022 [facility] DATE CREATED AUTHOR 'S JUSTIN BRANNON 03/25/2023 [facility] FOR RECORDS PERTAINING TO PATIENTS WHO ARE OR HAVE BEEN ENROLLED IN A CHEMICAL DEPENDENCY/SUBSTANCEABUSE PROGRAM, SOME INFORMATION MAY BE OMITTED. This clinical summary was aggregated from multiple sources. Caution should be exercised in using it in the provision of clinical care. This summary normalizes information from multiple sources, and as a consequence, information in this document may materially change the coding, format and clinical context of patient data. In addition, data may be omitted in some cases. CLINICAL DECISIONS SHOULD BE BASED ON THE PRIMARY CLINICAL RECORDS. [employer] [facility]. provides no warranty or guarantee of the accuracy or completeness of information in this document.
== END | disposition home or self-care (01) ==
LOC: MTLAB 16:49
PROVIDERS: PCP Family Medicine; Referring Provider Family Medicine; Visit Provider Family Medicine
DX: R10.9 Unspecified abdominal pain (principal)
CPT/HCPCS: 36415; 74019; 80053; 81001; 82150; 83690; 85025; 85652; 87086; 87088

== ENCOUNTER → 2025-02-19 | Outpatient (CLI) | payer OTHER, SELFPAY ==
--- NOTE | 2025-02-19 15:17 | VDLE_ITS ---
Reason For Study Reason For Study: LLE Pain RIGHT LEFT FV is compressible, spontaneous, phasic, competent GSV is normal. and demonstrates normal augmentation. CFV is compressible, spontaneous, phasic, competent, Procedure and demonstrates normal augmentation. This is a venous duplex using B-mode, color flow and FV is compressible, spontaneous, phasic, competent spectral Doppler. and demonstrates normal augmentation. Exam performed in department. POP V is compressible, spontaneous, phasic, competent The exam was diagnostic. and demonstrates normal augmentation. T/P Trunk is compressible. PTV is compressible. LT PerV is compressible. VL/Venous Duplex US, Unilateral Interpretation Summary Deep veins of the left lower extremity are patent and compressible segmentally. There is no evidence of left lower extremity deep vein thrombosis. Valvular competence appears intact within the p roximal deep venous system on the left . The left great saphenous vein appears patent and compressible segmentally. The right femoral vein is patent and compressible. Ordering Physician: Won Murphy Referring Physician: Won Murphy Performed By: Ken Mera RVT
== END | disposition home or self-care (01) ==
LOC: CVS 15:16
PROVIDERS: PCP Family Medicine; Referring Provider Family Medicine; Visit Provider Family Medicine
DX: M79.662 Pain in left lower leg (principal)
CPT/HCPCS: 93971

== ENCOUNTER → 2025-04-16 | Outpatient (CLI) | payer OTHER, SELFPAY ==
--- NOTE | 2025-04-16 15:12 | VDLE_ITS ---
Reason For Study Reason For Study: LLE SWelling RIGHT LEFT FV is compressible, spontaneous, phasic, competent GSV is normal. and demonstrates normal augmentation. CFV is compressible, spontaneous, phasic, competent, Procedure and demonstrates normal augmentation. This is a venous duplex using B-mode, color flow and FV is compressible, spontaneous, phasic, competent spectral Doppler. and demonstrates normal augmentation. Exam performed in department. POP V is compressible, spontaneous, phasic, competent The exam was diagnostic. and demonstrates normal augmentation. A preliminary report was called and/or faxed to T/Manav Trunk is compressible. [place] office. PTV is compressible. LT PerV is compressible. VL/Venous Duplex US, Unilateral Interpretation Summary Deep veins of the left lower extremity are patent and compressible segmentally. There is no evidence of left lower extremity deep vein thrombosis. Valvular competence appears intact within the p roximal deep venous system on the left . The left great saphenous vein appears patent and compressible segmentally. The right femoral vein is patent and compressible. Ordering Physician: Won Murphy Referring Physician: Won Murphy Performed By: Ken Mera RVT
--- OUTSIDE RECORDS SUMMARY | 2025-04-16 20:20 | XMS RPT_ITS | CCD ---
Author Organization [facility] Care Team Providers Care Bag Builder Name Role Phone Unavailable Primary Care Provider UnavailMARYJANE Oscar Attending Unavailable Jeffrey BARTON, Dr. Upton Primary Care Provider Jeffrey BARTON, Dr. Upton Attending Provider Dr. Won Murphy MD Referring Provider 1( [phone] Won Murphy Referring Unavailable Won Murphy Attending Unavailable Won Murphy Primary Care Unavailable Won Murphy Referring Unavailable Won Murphy Attending Unavailable Won Murphy Primary Care Unavailable Medications Completed/Discontinued Medications Medication Drug Class(es) [...] Problem Date Documented Da te Episodic/Chronic Other connective tissue disease (1 source) Pain in left lower leg; Translations: [Pain in left lower leg] Onset: 02-24-2025 Episodic Other skin disorders (1 source) Eruption; Translations: [Rash and other nonspecific skin eruption] Episodic Past or Other Problems Problem Classification Problem Date Documented Da te Episodic/Chronic Abdominal pain (1 source) Unspecified abdominal pain; Translations: [Unspecified abdominal pain] Onset: 08-08-2024 Episodic Nonspecific chest pain (1 source) Chest pain; Translations: [Chest pain, unspecified] Onset: 05-29-2014 Episodic Results Test Name Value Interpretation Reference Range Facility Venous Duplex US, Unilateral on 02-19-2025 Venous Duplex US, Unilateral [facility] [address] [place] [place] [address] Venous Duplex US, Unilateral 02/19/25 1523 MR#: [id number] Acct: [id number] Name: YOHANNES FORD Rep #: [id number] : 1995 29 From: Mina Jarrell MD Attending Dr: Dr. Won Murphy MD Status: REG CLI Ordering Dr: Won Murphy MD Date: 02/19/25 Location: CVS Sex: M AA Admitted: Reason For Study Reason For Study: LLE Pain RIGHT LEFT FV is compressible, spontaneous, phasic, competent GSV is normal. and demonstrates normal augmentation. CFV is compressible, spontaneous, phasic, competent, Procedure and demonstrates normal augmentation. This is a venous duplex using B-mode, color flow and FV is compressible, spontaneous, phasic, competent spectral Doppler. and demonstrates normal augmentation. Exam performed in department. POP V is compressible, spontaneous, phasic, competent The exam was diagnostic. and demonstrates normal augmentation. T/P Trunk is compressible. PTV is compressible. LT PerV is compressible. VL/Venous Duplex US, Unilateral Interpretation Summary Deep veins of the left lower extremity are patent and compressible segmentally. There is no evidence of left lower extremity deep vein thrombosis. Valvular competence appears intact within the proximal deep venous system on the left . The left great saphenous vein appears patent and compressible segmentally. The right femoral vein is patent and compressible. Ordering Physician: Won Murphy Referring Physician: Won Murphy Performed By: Ken Mera, T 02/19/25 190 Date Mina Jarrell MD CC: Dr. Won Murphy MD Date Dictated: 02/19/25 1523 Date Transcribed: 02/19/25 1906 Research Advisor: Signed Normal [facility] Venous duplex ultrasound rep ortOrdered By: Mina Jarrell on 02-19-2025 US Vein [facility] [address] [place] [address] Venous Duplex US, Unilateral 02/19/25 1523 MR#: [id number] Acct: [id number] Name: YOHANNES FORD Rep #:[id number] : 1995 29 From: Mina Jarrell MD Attending Dr: Dr. Won Murphy MD Status: REG CLI Ordering Dr: Won Murphy MD Alejandro e: 02/19/25 Location: CVS Sex: M AA Admitted: Reason For Study Reason For Study: LLE Pain RIGHT LEFT FV is compressible, spontaneous, phasic, competent GSV is normal. and demonstrates normal augmentation. CFV is compressible, spontaneous, phasic, competent, Procedure and demonstrates normal augmentation. This is a venous duplex using B-mode, color flow and FV is compressible, spontaneous, phasic, competent spectral Doppler. and demonstrates normal augmentation. Exam performed in department. POP V is compressible, spontaneous, phasic, competent The exam was diagnostic. and demonstrates normal augmentation. T/P Trunk is compressible. PTV is compressible. LT PerV is compressible. VL/Venous Duplex US, Unilateral Interpretation Summary Deep veins of the left lower extremity are patent and compressible segmentally. There is no evidence of left lower extremity deep vein thrombosis. Valvular competence appears intact within the proximal deep venous system on the left . The left great saphenous vein appears patent and compressible segmentally. The right femoral vein is patent and compressible. Ordering Physician: Won Murphy Referring Physician: Won Murphy Performed By: Ken Mera, T 02/19/251905 Date _ Mina Jarrell MD CC: Dr. Won Murphy MD ~ Date Dictated: 02/19/25 1523 Date Transcribed: 02/19/251905 Research Advisor: Signed [facility] Other Urine Cultureon 07-19-2024 [facility] Order Date: 07/17/24 Order Info: 630-4 - CUUR Below infection level. Mixed Gram Positive Organisms [place] Count 1000-10,000 MIXC Mixed contaminants. Submit a new specimen if indicated. Normal [facility] Comment on above: Performed By: #### L 100.0100, L400.0001, L101.9900, L500.4050, M100.2200 #### [facility] [address] [place], [place], [id number] Abd Inc Decub and/or Erecton 07-17-2024 Abd Inc Decub and/or Erect [facility] Imaging Services [address] [place] [address] Abd Inc Decub and/or Erect MR#: [id number] Acct: [id number] Name: YOHANNES FORD Rep #: [id number] : 1995 M 29 From: Errol Hernandez MD PCP: Dr. Won Murphy MD Status: REG CLI Study: Abd Inc Decub and/or Erect Date of Exam: 07/17 Exam# [id number] Ordering Dr: Won Murphy [id number] STUDY: X-RAY - ABDOMEN/PELVIS REASON FOR EXAM: Male, 29 years old. RLQ pain TECHNIQUE: AP supine and upright views of the abdomen and pelvis. COMPARISON: None. FINDINGS: Normal visualized lung bases. There is an unremarkable bowel gas pattern. There is no demonstrated free abdominal air. The visualized liver, spleen and kidneys are grossly normal in size and morphology. Normal soft tissue structures. Normal visualized osseous structures. RAD/Abd Inc Decub and/or Erect IMPRESSION: Normal x-ray examination of the abdomen and pelvis. Electronically Signed: Errol Hernandez MD at 12:27 EDT , CC: Dr. Won Murphy MD Research Advisor: Signed Normal [facility] Amylaseon 07-17-2024 RAMANDEEP 87 U/L Normal 25-115 [facility] Comment on above: Order Comment: Order Date: 07/17/24 Order Info: 0786-1 - CMP Order Info: 1798-8 - RAMANDEEP Order Info: 3040-3 - LIPASE Performed By: #### L 501.2450, L501.2400 #### [facility] [address] [facility] [place], [address] CBC W/Diff, Automatedon 06-26 Absolute Lymph 1.93 X10 3/uL Normal 0.83-4.51 [facility] Comment on above: Order Comment: Order Date: 07/17/24 Order Info: 0184-1 - CBCD Order Info: 13065-8 - SED Performed By: #### L 100.0100, L400.0001, L101.9900, L500.4050, M100.2200 #### [facility] [address] [facility] [place], [address] Absolute Neut 2.6 X10 3/uL Normal 2.0-7.7 [facility] Comment on above: Order Comment: Order Date: 07/17/24 Order Info: 183-09 - CBCD Order Info: 98108-9 - SED Performed By: #### L 100.0100, L400.0001, L101.9900, L500.4050, M100.2200 #### [facility] [address] [place], [address] Basophils/100 WBC (Bld) 1.5 % High 0-1 [facility] Comment on above: Order Comment: Order Date: 07/17/24 Order Info: 183-09 - CBCD Order Info: 32491-9 - SED Performed By: #### L 100.0100, L400.0001, L101.9900, L500.4050, M100.2200 #### [facility] [address] [place], [address] Eosinophils/100 WBC (Bld) 6.7 % High 0-5 [facility] Comment on above: Order Comment: Order Date: 07/17/24 Order Info: 183-09 - CBCD Order Info: 47614-0 - SED Performed By: #### L 100.0100, L400.0001, L101.9900, L500.4050, M100.2200 #### [facility] [address] [place], [address] Erythrocyte distribution width (RBC) [Ratio] 12.9 % Normal 11.6-14.6 [facility] Comment on above: Order Comment: Order Date: 07/17/24 Order Info: 183-09 - CBCD Order Info: 03433-8 - SED Performed By: #### L 100.0100, L400.0001, L101.9900, L500.4050, M100.2200 #### [facility] [address] [place], [address] Hematocrit (Bld) [Volume fraction] 45.3 % Normal 40-54 [facility] Comment on above: Order Comment: Order Date: 07/17/24 Order Info: 183-09 - CBCD Order Info: - SED Performed By: #### L 100.0100, L400.0001, L101.9900, L500.4050, M100.2200 #### [facility] [address] [place], [address] Hemoglobin (Bld) [Mass/Vol] 14.8 g/dL Normal 13.0-16.5 [facility] Comment on above: Order Comment: Order Date: 07/17/24 Order Info: 183-09 - CBCD Order Info: - SED Performed By: #### L 100.0100, L400.0001, L101.9900, L500.4050, M100.2200 #### [facility] [address] [place], [address] IG% 0.200 Normal 0.0-0.9 [facility] Comment on above: Order Comment: Order Date: 07/17/24 Order Info: 183-09 - CBCD Order Info: 21796-8 - SED Result Comment: IG% - Immature Granulocytes (promyelocytes, myelocytes and metamyelocytes) > 1% indicates that a LEFT SHIFT is Present. Performed By: #### L 100.0100, L400.0001, L101.9900, L500.4050, M100.2200 #### [facility] [address] [place], [address] Lymphocytes/100 WBC (Bld) 35.9 % Normal 19-41 [facility] Comment on above: Order Comment: Order Date: 07/17/24 Order Info: 01812-24 - CBCD Order Info: 29092-4 - SED Performed By: #### L 100.0100, L400.0001, L101.9900, L500.4050, M100.2200 #### [facility] [address] [place], [address] MCH (RBC) [Entitic mass] 29.0 pg Normal 27.0-32.0 [facility] Comment on above: Order Comment: Order Date: 07/17/24 Order Info: 183-09 - CBCD Order Info: 68241-7 - SED Performed By: #### L 100.0100, L400.0001, L101.9900, L500.4050, M100.2200 #### [facility] [address] [place], [address] MCHC (RBC) [Mass/Vol] 32.7 g/dL Normal 32-36 [facility] Comment on above: Order Comment: Order Date: 07/17/24 Order Info: 183-09 - CBCD Order Info: 46429-5 - SED Performed By: #### L 100.0100, L400.0001, L101.9900, L500.4050, M100.2200 #### [facility] [address] [place], [address] MCV (RBC) [Entitic vol] 88.8 fL Normal 80-94 [facility] Comment on above: Order Comment: Order Date: 07/17/24 Order Info: 183-09 - CBCD Order Info: 68824-9 - SED Performed By: #### L 100.0100, L400.0001, L101.9900, L500.4050, M100.2200 #### [facility] [address] [place], [address] Monocytes/100 WBC (Bld) 7.6 % Normal 0-10 [facility] Comment on above: Order Comment: Order Date: 07/17/24 Order Info: 183-09 - CBCD Order Info: 35087-6 - SED Performed By: #### L 100.0100, L400.0001, L101.9900, L500.4050, M100.2200 #### [facility] [address] [place], [address] Neutrophils/100 WBC (Bld) 48.1 % Normal 47-70 [facility] Comment on above: Order Comment: Order Date: 07/17/24 Order Info: 01812-24 - CBCD Order Info: 01832-2 - SED Performed By: #### L 100.0100, L400.0001, L101.9900, L500.4050, M100.2200 #### [facility] [address] [place], [address] Nucleated RBC (Bld) [#/Vol] 0 10*3/uL Normal 0-5 [facility] Comment on above: Order Comment: Order Date: 07/17/24 Order Info: 01812-24 - CBCD Order Info: 57982-9 - SED Performed By: #### L 100.0100, L400.0001, L101.9900, L500.4050, M100.2200 #### [facility] [address] [place], [address] Platelet mean volume (Bld) [Entitic vol] 9.5 fL Normal 6.2-12.0 [facility] Comment on above: Order Comment: Order Date: 07/17/24 Order Info: 01812-24 - CBCD Order Info: 11733-1 - SED Performed By: #### L 100.0100, L400.0001, L101.9900, L500.4050, M100.2200 #### [facility] [address] [place], [address] Platelets (Bld) [#/Vol] 292 10*3/uL Normal 150-450 [facility] Comment on above: Order Comment: Order Date: 07/17/24 Order Info: 01812-24 - CBCD Order Info: 07978-9 - SED Performed By: #### L 100.0100, L400.0001, L101.9900, L500.4050, M100.2200 #### [facility] [address] [place], [place], [id number] RBC (Bld) [#/Vol] 5.10 10*6/uL Normal 4.6-6.2 [facility] Comment on above: Order Comment: Order Date: 07/17/24 Order Info: 01812-24 - CBCD Order Info: 81106-5 - SED Performed By: #### L 100.0100, L400.0001, L101.9900, L500.4050, M100.2200 #### [facility] [address] [place], [place], [id number] RDW SD 41.7 fl Normal 35.1-43.9 [facility] Comment on above: Order Comment: Order Date: 07/17/24 Order Info: 01812-24 - CBCD Order Info: 08697-4 - SED Performed By: #### L 100.0100, L400.0001, L101.9900, L500.4050, M100.2200 #### [facility] [address] [place], [place], [id number] WBC (Bld) [#/Vol] 5.4 10*3/uL Normal 4.4-11.0 [facility] Comment on above: Order Comment: Order Date: 07/17/24 Order Info: 01812-24 - CBCD Order Info: 22826-3 - SED Performed By: #### L 100.0100, L400.0001, L101.9900, L500.4050, M100.2200 #### [facility] [address] [place], [place], [id number] Comprehensive Metabolic Prof ilon 07-17-2024 Albumin [Mass/Vol] 4.3 g/dL Normal 3.2-5.0 [facility] Comment on above: Order Comment: Order Date: 07/17/24 Order Info: 0786-1 - CMP Order Info: 1798-8 - RAMANDEEP Order Info: 3040-3 - LIPASE Performed By: #### L 100.0100, L400.0001, L101.9900, L500.4050, M100.2200 #### [facility] [address] [place], [address] Albumin/Globulin [Mass ratio] 1.3 {ratio} Normal 0.9-2.4 [facility] Comment on above: Order Comment: Order Date: 07/17/24 Order Info: 07 - CMP Order Info: 1798-04 - RAMANDEEP Order Info: 3 - LIPASE Performed By: #### L 100.0100, L400.0001, L101.9900, L500.4050, M100.2200 #### [facility] [address] [place], [address] ALK P 60 U/L Normal 45-117 [facility] Comment on above: Order Comment: Order Date: 07/17/24 Order Info: 07 - CMP Order Info: 1798-04 - RAMANDEEP Order Info: 3 - LIPASE Performed By: #### L 100.0100, L400.0001, L101.9900, L500.4050, M100.2200 #### [facility] [address] [place], [place], [id number] ALT [Catalytic activity/Vol] 45 U/L Normal 16-61 [facility] Comment on above: Order Comment: Order Date: 07/17/24 Order Info: 785-09 - CMP Order Info: 1798-04 RAMANDEEP Order Info: 0-3 - LIPASE Performed By: #### L 100.0100, L400.0001, L101.9900, L500.4050, M100.2200 #### [facility] [address] [place], [address] AST [Catalytic activity/Vol] 23 U/L Normal 15-37 [facility] Comment on above: Order Comment: Order Date: 07/17/24 Order Info: 07861 - CMP Order Info: 1798-04 - RAMANDEEP Order Info: 0-3 - LIPASE Performed By: #### L 100.0100, L400.0001, L101.9900, L500.4050, M100.2200 #### [facility] [address] [place], [address] Bilirubin [Mass/Vol] 0.40 mg/dL Normal 0.20-1.00 [facility] Comment on above: Order Comment: Order Date: 07/17/24 Order Info: 86-1 - CMP Order Info: 1798-04 - RAMANDEEP Order Info: 304-3 - LIPASE Result Comment: For patients on eltrombopag therapy, use of Dimension [place] TBIL is not recommended. Performed By: #### L 100.0100, L400.0001, L101.9900, L500.4050, M100.2200 #### [facility] [address] [place], [address] BUN/CRE 14.9 RATIO Normal 10-20 [facility] Comment on above: Order Comment: Order Date: 07/17/24 Order Info: 785- - CMP Order Info: 1798-04 RAMANDEEP Order Info: 3040-3 - LIPASE Performed By: #### L 100.0100, L400.0001, L101.9900, L500.4050, M100.2200 #### [facility] [address] [place], [address] CA,Total 9.4 mg/dL Normal 8.5-10.1 [facility] Comment on above: Order Comment: Order Date: 07/17/24 Order Info: 785-1 - CMP Order Info: 1798-04 RAMANDEEP Order Info: 3040-3 - LIPASE Performed By: #### L 100.0100, L400.0001, L101.9900, L500.4050, M100.2200 #### [facility] [address] [place], [address] Chloride [Moles/Vol] 105 mmol/L Normal 98-107 [facility] Comment on above: Order Comment: Order Date: 07/17/24 Order Info: 86-1 - CMP Order Info: 1798-04 - RAMANDEEP Order Info: 3039-11 - LIPASE Performed By: #### L 100.0100, L400.0001, L101.9900, L500.4050, M100.2200 #### [facility] [address] [place], [address] CO2 [Moles/Vol] 29.0 mmol/L Normal 21.0-32.0 [facility] Comment on above: Order Comment: Order Date: 07/17/24 Order Info: 785-09 - CMP Order Info: 1798-04 RAMANDEEP Order Info: 3039-11 - LIPASE Performed By: #### L 100.0100, L400.0001, L101.9900, L500.4050, M100.2200 #### [facility] [address] [place], [address] Creatinine [Mass/Vol] 1.01 mg/dL Normal 0.70-1.30 [facility] Comment on above: Order Comment: Order Date: 07/17/24 Order Info: 785-09 - CMP Order Info: 1798-04 RAMANDEEP Order Info: 3039-11 - LIPASE Result Comment: The validity of the calculated GFR GFRAA in patients over 70 years has not been determined. Clinical correlation is essential. Performed By: #### L 100.0100, L400.0001, L101.9900, L500.4050, M100.2200 #### [facility] [address] [place], [address] EST GFR - AA 111 mL/min Normal >60 [facility] Comment on above: Order Comment: Order Date: 07/17/24 Order Info: 785-09 - CMP Order Info: 1798-04 RAMANDEEP Order Info: 3039-11 - LIPASE Result Comment: Afri can [place] GFR Calc Performed By: #### L 100.0100, L400.0001, L101.9900, L500.4050, M100.2200 #### [facility] [address] [place], [address] GAP 3 Low 5-15 [facility] Comment on above: Order Comment: Order Date: 07/17/24 Order Info: 785- - CMP Order Info: 1798-04 RAMANDEEP Order Info: 3039-3 - LIPASE Performed By: #### L 100.0100, L400.0001, L101.9900, L500.4050, M100.2200 #### [facility] [address] [place], [address] GFR/1.73 sq M.predicted among non-blacks MDRD (S/P/Bld) [Vol rate/Area] 91 mL/min/{1.73_m2} Normal >60 [facility] Comment on above: Order Comment: Order Date: 07/17/24 Order Info: 785- - CMP Order Info: 1798-04 - RAMANDEEP Order Info: 3039-3 - LIPASE Result Comment: Non- GFR Calc Performed By: #### L 100.0100, L400.0001, L101.9900, L500.4050, M100.2200 #### [facility] [address] [place], [address] Globulin (S) [Mass/Vol] 3.3 g/dL Normal 2.2-4.2 [facility] Comment on above: Order Comment: Order Date: 07/17/24 Order Info: 785-09 - CMP Order Info: 1798-04 RAMANDEEP Order Info: 3039-3 - LIPASE Performed By: #### L 100.0100, L400.0001, L101.9900, L500.4050, M100.2200 #### [facility] [address] [place], [address] Glucose [Mass/Vol] 91 mg/dL Normal 74-106 [facility] Comment on above: Order Comment: Order Date: 07/17/24 Order Info: 785-09 - CMP Order Info: 1798-04 RAMANDEEP Order Info: 3039-3 - LIPASE Performed By: #### L 100.0100, L400.0001, L101.9900, L500.4050, M100.2200 #### [facility] [address] [place], [address] Potassium [Moles/Vol] 3.7 mmol/L Normal 3.5-5.1 [facility] Comment on above: Order Comment: Order Date: 07/17/24 Order Info: 0786-1 - CMP Order Info: 1798-04 - RAMANDEEP Order Info: 0-3 - LIPASE Performed By: #### L 100.0100, L400.0001, L101.9900, L500.4050, M100.2200 #### [facility] [address] [place], [address] Sodium [Moles/Vol] 137 mmol/L Normal 136-145 [facility] Comment on above: Order Comment: Order Date: 07/17/24 Order Info: 07-1 - CMP Order Info: 1798-04 - RAMANDEEP Order Info: 3039-3 - LIPASE Performed By: #### L 100.0100, L400.0001, L101.9900, L500.4050, M100.2200 #### [facility] [address] [place], [address] T PROT 7.6 g/dL Normal 6.4-8.2 [facility] Comment on above: Order Comment: Order Date: 07/17/24 Order Info: 0786-1 - CMP Order Info: 1798-04 - RAMANDEEP Order Info: 3040-3 - LIPASE Performed By: #### L 100.0100, L400.0001, L101.9900, L500.4050, M100.2200 #### [facility] [address] [place], [address] Urea nitrogen [Mass/Vol] 15 mg/dL Normal 7-18 [facility] Comment on above: Order Comment: Order Date: 07/17/24 Order Info: 0786-1 - CMP Order Info: 1798-04 - RAMANDEEP Order Info: 3040-3 - LIPASE Performed By: #### L 100.0100, L400.0001, L101.9900, L500.4050, M100.2200 #### [facility] [address] [place], [address] Erythrocyte Sed Rateon 07-17 SED RATE 9 mm/hr Normal 0-20 [facility] Comment on above: Order Comment: Order Date: 07/17/24 Order Info: 0184-1 - CBCD Order Info: 61352-2 - SED Performed By: #### L 100.0100, L400.0001, L101.9900, L500.4050, M100.2200 #### [facility] [address] [place], [address] Lipaseon 07-17-2024 Lipase [Catalytic activity/Vol] 51 U/L Normal 13-75 [facility] Comment on above: Order Comment: Order Date: 07/17/24 Order Info: 0786-1 - CMP Order Info: 1798-8 - RAMANDEEP Order Info: 3040-3 - LIPASE Result Comment: Netta christian note: LIPASE revised reference range effective 23. New Lipase methodology. Expected to produce lower values than the previous assay method. NEW Reference Range: 13 - 75 U/L Performed By: #### L 501.2450, L501.2400 #### [facility] [address] [place], [address] Urinalysis, Completeon 07-17 CAST,COARSE GR 0-5 SEEN Normal 0-5 /lpf [facility] Comment on above: Order Comment: Order Date: 07/17/24 Order Info: 98500-8 - [facility] CHANNEL MARKETING SPECIALIST TO SPECIFY Performed By: #### L 100.0100, L400.0001, L101.9900, L500.4050, M100.2200 #### [facility] [address] [place], [address] Mucus Ql (Urine sed) 1+ /hpf Normal [facility] Comment on above: Order Comment: Order Date: 07/17/24 Order Info: [address] [place] [address] CHANNEL MARKETING SPECIALIST TO SPECIFY Performed By: #### L 100.0100, L400.0001, L101.9900, L500.4050, M100.2200 #### [facility] [address] [place], [address] BACTERIA RARE Normal None Seen [facility] Comment on above: Order Comment: Order Date: 07/17/24 Order Info: [address] [place] [address] CHANNEL MARKETING SPECIALIST TO SPECIFY Performed By: #### L 100.0100, L400.0001, L101.9900, L500.4050, M100.2200 #### [facility] [address] [place], [address] EPI,SQUAMOUS 0-5 SEEN Normal 0-5 [facility] Comment on above: Order Comment: Order Date: 07/17/24 Order Info: [address] [place] [address] CHANNEL MARKETING SPECIALIST TO SPECIFY Performed By: #### L 100.0100, L400.0001, L101.9900, L500.4050, M100.2200 #### [facility] [address] [place], [address] RBC 0-5 SEEN Normal 0-5 [facility] Comment on above: Order Comment: Order Date: 07/17/24 Order Info: [address] [place] [address] CHANNEL MARKETING SPECIALIST TO SPECIFY Performed By: #### L 100.0100, L400.0001, L101.9900, L500.4050, M100.2200 #### [facility] [address] [place], [address] WBC 0-5 SEEN Normal 0-5 [facility] Comment on above: Order Comment: Order Date: 07/17/24 Order Info: [address] [place] [address] CHANNEL MARKETING SPECIALIST TO SPECIFY Performed By: #### L 100.0100, L400.0001, L101.9900, L500.4050, M100.2200 #### [facility] [address] [place], [address] [facility] HNO ID: [id number] Author: RT Constantin(Jean Marie) Service: Radiology Author Type: Statistics Intern Type: Allied Health Filed: 03/24/2023 2:48 PM [...] PERIPHERAL IV DATA: Not applicable SIGNED BY: RT Constantin(Jean Marie) March 24, 2023 2:48 PM Normal [facility] CBC W Auto Differential pane l (Bld)on 03-24-2023 Basophils (Bld) [#/Vol] 0.05 10*3/uL Normal <0.11 [facility] Comment on above: Order Comment: Speci men Type: BLOOD SPECIMEN Ordering Facility: [facility] Address: [address] [place] [address] Performed By: #### 5 7021-8 #### [facility] CLIA [id number] [address] [place] [address] [place] Basophils/100 WBC (Bld) 0.7 % Normal [facility] Comment on above: Order Comment: Speci men Type: BLOOD SPECIMEN Ordering Facility: [facility] Address: [address] [place] [address] Performed By: #### 5 7021-8 #### [facility] CLIA [id number] [address] [place] [address] [place] Differential cell count method Nom (Bld) Auto Normal [facility] Comment on above: Order Comment: Speci men Type: BLOOD SPECIMEN Ordering Facility: [facility] Address: [address] [place] [address] Performed By: #### 5 7021-8 #### [facility] CLIA [id number] [address] Eosinophils (Bld) [#/Vol] 0.30 10*3/uL Normal <0.46 [facility] Comment on above: Order Comment: Speci men Type: BLOOD SPECIMEN Ordering Facility: [facility] Address: [address] [place] [address] Performed By: #### 5 7021-8 #### [facility] CLIA [id number] [address] Eosinophils/100 WBC (Bld) 4.0 % Normal [facility] Comment on above: Order Comment: Speci men Type: BLOOD SPECIMEN Ordering Facility: [facility] Address: [address] [place] [address] Performed By: #### 5 7021-8 #### [facility] CLIA [id number] [address] Erythrocyte distribution width (RBC) [Ratio] 12.6 % Normal 11.5-15.0 [facility] Comment on above: Order Comment: Speci men Type: BLOOD SPECIMEN Ordering Facility: [facility] Address: [address] [place] [address] Performed By: #### 5 7021-8 #### [facility] CLIA [id number] [address] Hematocrit (Bld) [Volume fraction] 44.7 % Normal 39.0-51.0 [facility] Comment on above: Order Comment: Speci men Type: BLOOD SPECIMEN Ordering Facility: [facility] Address: [address] [place] [address] Performed By: #### 5 7021-8 #### [facility] CLIA [id number] [address] Hemoglobin (Bld) [Mass/Vol] 15.5 g/dL Normal 13.0-17.0 [facility] Comment on above: Order Comment: Speci men Type: BLOOD SPECIMEN Ordering Facility: [facility] Address: [address] [address] Performed By: #### 5 7021-8 #### [facility] CLIA [id number] [address] [place] Immature granulocytes (Bld) [#/Vol] 10*3/uL Normal <0.10 [facility] Comment on above: Order Comment: Speci men Type: BLOOD SPECIMEN Ordering Facility: [facility] Address: [address] [place] [address] Performed By: #### 5 7021-8 #### [facility] CLIA [id number] [address] STATES [facility] Immature granulocytes/100 WBC (Bld) 0.3 % Normal [facility] Comment on above: Order Comment: Speci men Type: BLOOD SPECIMEN Ordering Facility: [facility] Address: [address] [place] [address] Performed By: #### 5 7021-8 #### [facility] CLIA [id number] [address] OF [facility] Lymphocytes (Bld) [#/Vol] 1.23 10*3/uL Normal 1.00-4.00 [facility] Comment on above: Order Comment: Speci men Type: BLOOD SPECIMEN Ordering Facility: [facility] Address: [address] [place] [address] Performed By: #### 5 7021-8 #### [facility] CLIA [id number] [address] Lymphocytes/100 WBC (Bld) 16.2 % Normal [facility] Comment on above: Order Comment: Speci men Type: BLOOD SPECIMEN Ordering Facility: [facility] Address: [address] [place] [address] Performed By: #### 5 7021-8 #### [facility] CLIA [id number] [address] [place] MCH (RBC) [Entitic mass] 30.6 pg Normal 26.0-34.0 [facility] Comment on above: Order Comment: Speci men Type: BLOOD SPECIMEN Ordering Facility: [facility] Address: [address] [address] Performed By: #### 5 7021-8 #### [facility] CLIA [id number] [address] [place] [address] [place] MCHC (RBC) [Mass/Vol] 34.7 g/dL Normal 30.5-36.0 [facility] Comment on above: Order Comment: Speci men Type: BLOOD SPECIMEN Ordering Facility: [facility] Address: [address] [address] Performed By: #### 5 7021-8 #### [facility] CLIA [id number] [address] [place] [address] [place] MCV (RBC) [Entitic vol] 88.2 fL Normal 80.0-100.0 [facility] Comment on above: Order Comment: Speci men Type: BLOOD SPECIMEN Ordering Facility: [facility] Address: [address] [address] Performed By: #### 5 7021-8 #### [facility] CLIA [id number] [address] [place] [address] [place] Monocytes (Bld) [#/Vol] 0.46 10*3/uL Normal <0.87 [facility] Comment on above: Order Comment: Speci men Type: BLOOD SPECIMEN Ordering Facility: [facility] Address: [address] [address] Performed By: #### 5 7021-8 #### [facility] CLIA [id number] [address] [place] Monocytes/100 WBC (Bld) 6.1 % Normal [facility] Comment on above: Order Comment: Speci men Type: BLOOD SPECIMEN Ordering Facility: [facility] Address: [address] [address] Performed By: #### 5 7021-8 #### [facility] CLIA [id number] [address] [place] [address] [place] Neutrophils (Bld) [#/Vol] 5.53 10*3/uL Normal 1.45-7.50 [facility] Comment on above: Order Comment: Speci men Type: BLOOD SPECIMEN Ordering Facility: [facility] Address: [address] [address] Performed By: #### 5 7021-8 #### [facility] CLIA [id number] [address] [address] Neutrophils/100 WBC (Bld) 72.7 % Normal [facility] Comment on above: Order Comment: Speci men Type: BLOOD SPECIMEN Ordering Facility: [facility] Address: [address] [address] Performed By: #### 5 7021-8 #### [facility] CLIA [id number] [address] [place] Nucleated RBC (Bld) [#/Vol] 10*3/uL Normal <0.01 [facility] Comment on above: Order Comment: Speci men Type: BLOOD SPECIMEN Ordering Facility: [facility] Address: [address] [place] [address] Performed By: #### 5 7021-8 #### [facility] CLIA [id number] [address] [place] Nucleated RBC/100 WBC (Bld) [Ratio] 0.0 /100 WBC Normal [facility] Comment on above: Order Comment: Speci men Type: BLOOD SPECIMEN Ordering Facility: [facility] Address: [address] [place] [address] Performed By: #### 5 7021-8 #### [facility] CLIA [id number] [address] [place] [address] [place] Platelet mean volume (Bld) [Entitic vol] 8.8 fL Low 9.0-12.7 [facility] Comment on above: Order Comment: Speci men Type: BLOOD SPECIMEN Ordering Facility: [facility] Address: [address] [place] [address] Performed By: #### 5 7021-8 #### [facility] CLIA [id number] [address] [place] [address] [place] Platelets (Bld) [#/Vol] 271 10*3/uL Normal 150-400 [facility] Comment on above: Order Comment: Speci men Type: BLOOD SPECIMEN Ordering Facility: [facility] Address: [address] [address] Performed By: #### 5 7021-8 #### [facility] CLIA [id number] [address] RBC (Bld) [#/Vol] 5.07 10*6/uL Normal 4.20-6.00 [facility] Comment on above: Order Comment: Speci men Type: BLOOD SPECIMEN Ordering Facility: [facility] Address: [address] [address] Performed By: #### 5 7021-8 #### [facility] CLIA [id number] [address] WBC (Bld) [#/Vol] 7.59 10*3/uL Normal 3.70-11.00 [facility] Comment on above: Order Comment: Speci men Type: BLOOD SPECIMEN Ordering Facility: [facility] Address: [address] [place] [address] Performed By: #### 5 7021-8 #### [facility] CLIA [id number] [address] [address] Comprehensive metabolic 2000 panelon 03-24-2023 Albumin [Mass/Vol] 4.5 g/dL Normal 3.9-4.9 [facility] Comment on above: Order Comment: Speci men Type: BLOOD SPECIMEN Ordering Facility: [facility] Address: [address] [place] [address] Performed By: #### L [id number], 66300-4 #### [facility] CLIA [id number] [address] ALP [Catalytic activity/Vol] 59 U/L Normal 38-113 [facility] Comment on above: Order Comment: Speci men Type: BLOOD SPECIMEN Ordering Facility: [facility] Address: [address] [place] [address] Performed By: #### L [id number], 89911-8 #### [facility] CLIA [id number] [address] [place] [address] [place] ALT [Catalytic activity/Vol] 28 U/L Normal 10-54 [facility] Comment on above: Order Comment: Speci men Type: BLOOD SPECIMEN Ordering Facility: [facility] Address: [address] [address] Performed By: #### L [id number], 62607-6 #### [facility] CLIA [id number] [address] [place] [address] [place] Anion gap [Moles/Vol] 14 mmol/L Normal 9-18 [facility] Comment on above: Order Comment: Speci men Type: BLOOD SPECIMEN Ordering Facility: [facility] Address: [address] [address] Performed By: #### L [id number], #### [facility] CLIA [id number] [address] [place] AST [Catalytic activity/Vol] 20 U/L Normal 14-40 [facility] Comment on above: Order Comment: Speci men Type: BLOOD SPECIMEN Ordering Facility: [facility] Address: [address] [address] Performed By: #### L [id number], #### [facility] CLIA [id number] [address] [place] [address] [place] Bilirubin [Mass/Vol] 0.6 mg/dL Normal 0.2-1.3 [facility] Comment on above: Order Comment: Speci men Type: BLOOD SPECIMEN Ordering Facility: [facility] Address: [address] [address] Performed By: #### L PE5872, 57804-2 #### [facility] CLIA [id number] [address] [place] [address] [place] Calcium [Mass/Vol] 9.4 mg/dL Normal 8.5-10.2 [facility] Comment on above: Order Comment: Speci men Type: BLOOD SPECIMEN Ordering Facility: [facility] Address: [address] [address] Performed By: #### L [id number], 01540-6 #### [facility] CLIA [id number] [address] Chloride [Moles/Vol] 101 mmol/L Normal 97-105 [facility] Comment on above: Order Comment: Vanessa men Type: BLOOD SPECIMEN Ordering Facility: [facility] Address: [address] [place] [address] Performed By: #### L [id number], 80387-6 #### [facility] CLIA [id number] [address] CO2 [Moles/Vol] 23 mmol/L Normal 22-30 [facility] Comment on above: Order Comment: Vanessa men Type: BLOOD SPECIMEN Ordering Facility: [facility] Address: [address] [place] [address] Performed By: #### L [id number], 33398-5 #### [facility] CLIA [id number] [address] Creatinine [Mass/Vol] 1.07 mg/dL Normal 0.73-1.22 [facility] Comment on above: Order Comment: Neymari men Type: BLOOD SPECIMEN Ordering Facility: [facility] Address: [address] [place] [address] Performed By: #### L AR2002, 09557-7 #### [facility] CLIA [id number] [address] ESTIMATED GLOMERULAR FILTRATION RATE 96 mL/min/1.73m??? Normal >=60 [facility] Comment on above: Order Comment: Vanessa cruz Type: BLOOD SPECIMEN Ordering Facility: [facility] Address: [address] [place] [address] Result Comment: Estelita mated Glomerular Filtration Rate [...] reflect actual GFR. Performed By: #### L [id number], 44081-0 #### [facility] CLIA [id number] [address] [place] [address] [place] Glucose [Mass/Vol] 119 mg/dL High 74-99 [facility] Comment on above: Order Comment: Vanessa cruz Type: BLOOD SPECIMEN Ordering Facility: [facility] Address: [address] [place] [address] Result Comment: The [place] [employer] (ADA) provides guidance for cutoff [...] Standards of Medical Care in Diabetes 2016, [place] [employer]. Diabetes Care. 2016.39(Suppl 1). Performed By: #### L [id number], 82508-5 #### [facility] CLIA [id number] [address] [place] [address] [place] Potassium [Moles/Vol] 3.7 mmol/L Normal 3.7-5.1 [facility] Comment on above: Order Comment: Vanessa cruz Type: BLOOD SPECIMEN Ordering Facility: [facility] Address: [address] [place] [address] Performed By: #### L [id number], 07277-9 #### [facility] CLIA [id number] [address] [place] [address] [place] Protein [Mass/Vol] 7.4 g/dL Normal 6.3-8.0 [facility] Comment on above: Order Comment: Vanessa cruz Type: BLOOD SPECIMEN Ordering Facility: [facility] Address: [address] [place] [address] Performed By: #### L [id number], 99944-0 #### [facility] CLIA [id number] [address] [place] [address] [place] Sodium [Moles/Vol] 138 mmol/L Normal 136-144 [facility] Comment on above: Order Comment: Speci men Type: BLOOD SPECIMEN Ordering Facility: [facility] Address: [address] Performed By: #### L [id number], 83884-9 #### [facility] CLIA [id number] [address] Urea nitrogen [Mass/Vol] 15 mg/dL Normal 9-24 [facility] Comment on above: Order Comment: Speci men Type: BLOOD SPECIMEN Ordering Facility: [facility] Address: [address] [place] [address] Performed By: #### L WQ0961, 84106-1 #### [facility] CLIA [id number] [address] D dimer FEU PPP-mCncon 03-24 Fibrin D-dimer FEU (PPP) [Mass/Vol] 260 ng/mL FEU Normal <500 [facility] Comment on above: Order Comment: Speci men Type: BLOOD SPECIMEN Ordering Facility: [facility] Address: [address] [place] [address] Performed By: #### 4 8065-7, 88988-2 #### [facility] CLIA [id number] [address] ECG COMPLETEon 03-24-2023 ECG COMPLETE Ventricular Rate : 8 9 BPM Atrial Rate : 89 BPM P-R Interval : 154 ms QRS Duration : 96 ms Q-T Interval : 356 ms QTC Calculation(Bazett) : 433 ms Calculated P Garrett : 70 degrees Calculated R Garrett : 71 degrees Calculated T Garrett : 40 degrees NORMAL SINUS RHYTHM NORMAL ECG no stemi Confirmed by MD GONZALEZ STEVEN ([id number]), staff editor ADILSON ORTIZ ([id number]) on 03/24/2023 4:23:22 PM NAME : YOHANNES FORD PID : [id number] : 1995 Gender : Male Race : ORD : [id number] Procedure Date : Mar 24 2023 13:34:57 Edit Date : Mar 24 2023 16:23:23 Diagnosis: NORMAL SINUS RHYTHM NORMAL ECG no stemi Confirmed by MD GONZALEZ STEVEN ([id number]), staff editor ADILSON ORTIZ (1944) on 03/24/2023 4:23:22 PM Test Reason : Chest Pain Location : 1 : ER 16 Overread By : MD GONZALEZ STEVEN Edited By : ADILSON ORTIZ Referred By : , Acquired by : ERNESTO [facility] ED NOTEon 03-24-2023 ED NOTE HNO ID: [id number] Author: Joshua Traylor RN Service: ? Author Type: Registered Nurse Type: ED Notes Filed: 03/24/2023 4:38 PM Note Text: Discharge instructions and prescriptions reviewed with patient via teachback. Pt verbalizes understanding. Pt awake and alert, respirations regular and unlabored. No further questions for this RN. [facility] ED NOTE HNO ID: [id number] Author: GREYSON Muñoz Service: ? Author Type: Nurse Associate Type: ED Notes Filed: 03/24/2023 1:36 PM Note Text: Pt c/o chest pain x 1 week. He says he mostly feels the pain in his lower right chest, and says it is worse with breathing deep. Pt says the pain is 2/[address] [facility] ED PROV NOTEon 03-24-2023 ED PROV NOTE HNO ID: [id number] Author: Surinder Davis MD Service: Emergency Medicine Author Type: Physician Type: ED Provider Notes Filed: 03/24/2023 4:16 PM Note Text: ED CONTINUATION OF CARE NOTE Code Status: Full Code Assumed care from: Dr. Douglass Presentation / Findings / Interventions / Plan / Items to Follow Up: Labs, chest x-ray XR CHEST 1V FRONTAL PORT Final Result IMPRESSION: No acute leather fitter: NAYELY Transcribe Date/Time: Mar 24 2023 3:03P [...] as of 03/24/23 1612 Surinder Davis's Documentation Fri Mar 24, 2023 1604 High-sensitivity troponins are negative [...] PM PAGER/CONTACT #: SURINDER DAVIS 03/24/[address] [facility] ED PROV NOTE HNO ID: [id number] Author: Eugene Gonzalez MD Service: Emergency Medicine [...] MD KEVEN Munguia STEVEN 03/24/23 1439 Normal [facility] HIGH SENSITIVITY TROPONIN T (INITIAL)on 03-24-2023 HIGH SENSITIVITY ANNETTA <6 Normal <12 [facility] Comment on above: Order Comment: Vanessa cruz Type: BLOOD SPECIMEN Ordering Facility: [facility] Address: [address] [place] [address] Result Comment: When assessing risk for acute [...] 30 day MACE. Performed By: #### L [id number], 63869-0 #### [facility] CLIA [id number] [address] HIGH SENSITIVITY TROPONIN T (SECOND)on 03-24-2023 HIGH SENSITIVITY ANNETTA <6 Normal <12 [facility] Comment on above: Order Comment: Vanessa cruz Type: BLOOD SPECIMEN Ordering Facility: [facility] Address: [address] [place] [address] Result Comment: When assessing risk for acute [...] 30 day MACE. Performed By: #### L [id number] #### [facility] CLIA [id number] [address] OF [facility] PT panel Coag (PPP)on 2022 INR Coag (PPP) [Relative time] 1.1 {INR} Normal 0.9-1.3 [facility] Comment on above: Order Comment: Vanessa cruz Type: BLOOD SPECIMEN Ordering Facility: [facility] Address: [address] [address] Result Comment: Marychuy min K Antagonist (VKA) Therapeutic Range: INR 2 to 3 (Target INR of 2.5) Note: For patients treated with VKA drugs, such as warfarin, the [place] [employer] 2012 Guideline recommends [...] Chest 2012, 141:7S-47S Nelson RA, et al. [facility] 2017, 70: 252-289 Performed By: #### 4 8065-7, 17215-9 #### [facility] CLIA [id number] [address] PT Coag (PPP) [Time] 11.7 s Normal 9.7-13.0 [facility] Comment on above: Order Comment: Vanessa cruz Type: BLOOD SPECIMEN Ordering Facility: [facility] Address: [address] [id number] Performed By: #### 4 8065-7, 07135-0 #### [facility] CLIA [id number] [address] [place] [address] [place] XR CHEST 1V FRONTAL [...] Other: Bony structures unremarkable. IMPRESSION: No acute leather fitter: NAYELY Transcribe Date/Time: Mar 24 2023 3:03P Dictated by : STACY JOHNSON DO This examination was interpreted and the report reviewed and electronically signed by: STACY JOHNSON DO on Mar 24 2023 3:04PM EST [id number] Normal [facility] Encounters Encounter Date Encounter Type Care Provider Facility Start: 02-19-2025 End: 02-19-[address] Won Murphy MD Work Phone: [facility] Work Phone: Start: 02-19-2025 End: 02-19-[address] Won Murphy MD -Cardiovascular Services Work Phone: Start: 02-19-2025 End: 02-19-2025 ambulatory Won Murphy Facility:[facility] Start: 07-17-2024 End: 07-17-2024 ambulatory Won Murphy Facility:[facility] Start: 03-24-2023 Emergency department patient visit Facility:[facility] Start: 06-22-2022 End: 06-22-2022 ambulatory MARYJANE CHILDERS Facility:[facility] Start: 06-22-2022 End: 06-22-2022 ambulatory Maryjane Childers SIXTO.CRISTIAN Work Phone: Telemedicine Comment on above: Rash and nonspecific skin eruption (Primary Dx) Start: 06-22-2022 End: 06-22-2022 Telemedicine consultation with patient Maryjane [place] S[employer]TO.CRISTIAN Work Phone: [facility] Plan of Treatment Date Care Activity Detail Author Start: 05-26-2022 Influenza vaccination INFLUENZA (#1) [facility] Start: 09-25-2021 DEPRESSION ASSESSMENT DEPRESSION ASS ESSMENT [facility] Start: 2012 Urine microalbumin profile DTAP,TDAP ,TD (1 - Tdap) [facility] Start: 2011 HEPATITIS C SCREENING HEPATITIS C SC EFENING [facility] Start: 2011 HIV SCREENING HIV SCREENING [facility] Start: 1993 COVID-19 VACCINE (#1) COVID-19 VACCI NE (#1) [facility] Start: 1993 HEPATITIS B (1 of 3 - 3-dose series) HEPATITIS B (1 of 3 - 3-dose series) [facility] Payers Date Payer Category Payer Self-pay 2021 Unknown [id number] 2018 Unknown FABI MARY YAN PPO [id number] 2018-Present [phone] [facility] [id number] [place] [address] PPO [id number] Unknown FABI [id number] Unknown MCNEILL RULE [id number] Unknown [id number] Unknown [id number] Social History Date Type Detail Facility Start: 05-29-2014 Tobacco smoking stat us NHIS Never smoked tobacco [facility] Start: 06-22-2022 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 Author Type: Nurse Practitioner Type: Progress Notes Filed: 06/22/2022 8:02 PM Note Text: Telemedicine Visit - Distance Health Virtual Visit Note Patient seen on NoteVault Online platform. Location of patient: [place] No primary care provider on file. History [...] for about 10 days. Will also send MyChart message to continue to monitor situation. PLAN: [...] would like to continue care with a [facility] Virtual Primary Care physician, please ask your provider to place a "Establish Primary Care" order. Use Livestream to manage your care, wherever you are, 17/04, on your mobile device or computer. Livestream connects you to Nextpeer? so you can access all your health information in one place and also schedule and request virtual appointments with primary care providers. [facility] History of Present illness Narrative 06-22-2022 Maryjane [place] APRN.CNP - 06/22/2022 7:41 PM EDT Note Date & Type Note Facility 06-22-2022 History of Presen t illness Narrative Telemedicine Visit - Distance Health Virtual Visit Note Patient seen on NoteVault Online platform. Location of patient: [place] No primary care provider on file. History [...] for about 10 days. Will also send Nextpeer message to continue to monitor situation. PLAN: [...] would like to continue care with a [facility] Virtual Primary Care physician, please ask your provider to place a "Establish Primary Care" order. Use Livestream to manage your care, wherever you are, 17/04, on your mobile device or computer. Livestream connects you to Nextpeer so you can access all your health information in one place and also schedule and request virtual appointments with primary care providers. documented in this encounter [facility] Evaluation note Note Date & Type Note Facility Evaluation note Diagnosis Rash and nonspecific skin eruption- Primary Rash and other nonspecific skin eruption documented in this encounter [facility] Evaluation note Note Date & Type Note Facility Evaluation note No assessment information availa ble [facility] Work Phone: Reason for referral (narrative) Note Date & Type Note Facility Reason for referral (narrative) No reason for referral information available [facility] Work Phone: Summary Purpose Family History No Family History Records FoundNo Family History Records FoundNo Family History Records Found Advance Directives No Advanced Directives Records FoundNo Advanced Directives Records FoundNo Advanced Directives Records Found Chief Complaint and Reason for Visit Chief Complaint Admit Date Pain in unspecified lower leg, left calf February 19, 2025 3:15pm Additional Source Comments Source Comments (unrecognize d section and content) In the event this informatio n is protected by the Federal Confidentiality of Alcohol and Drug Abuse Patient Records regulations: The Federal rules restrict any use of the information to criminally investigate or prosecute any alcohol or drug abuse patient.[facility] Reason for Visit (unrecogniz ed section and content) Reason Comments Rash (unrecognized sect ion and content) No Status Records FoundNo Status Records FoundNo Status Records Found INFORMATION SOURCE (unrecogn ized section and content) DATE CREATED AUTHOR 06/27/2022 [facility] DATE CREATED AUTHOR AUTHOR'S ORGANIZ ATION 03/25/2023 [facility] DATE CREATED AUTHOR AUTHOR'S ORGANIZ ATION 02/25/2025 [facility] Care Teams (unrecognized sec tion and content) Team Status: Active Member Role Status Dates Dr. Won Murphy MD Primary Care Provider Acti ve Team Status: Inactive Member Role Status Dates Dr. Won Murphy MD Primary Care Provider Acti ve Start: February 19, 2025 End: February 19, 2025 Dr. Won Murphy MD Attending Provider Active Start: February 19, 2025 End: February 19, 2025 Dr. Won Murphy MD Referring Provider Active Start: February 19, 2025 End: February 19, 2025 Goals (unrecognized section and content) Goals may be documented in a n alternate section FOR RECORDS PERTAINING TO PATIENTS WHO ARE [...] BE BASED ON THE PRIMARY CLINICAL RECORDS. [employer] [facility]. provides no warranty or guarantee of the accuracy or completeness of information in this document.
== END | disposition home or self-care (01) ==
LOC: CVS 15:08
PROVIDERS: PCP Family Medicine; Referring Provider Family Medicine; Visit Provider Family Medicine
DX: M79.89 Other specified soft tissue disorders (principal)
CPT/HCPCS: 93971